=== PATIENT | female | born 1950 | race Caucasian/White ===

== ENCOUNTER 2024-01-15 05:23 | Inpatient (IN) | payer MEDICARE, MEDICAID ==
[~2024-01-15] VITALS: Ht 170.2 cm; Wt 76.3 kg
[2024-01-15] MEDS ORDERED: oxyCODONE IR immediate release 5 MG TABLET PO PRN (05:30)
[2024-01-15] MEDS ORDERED: MAG HYDROX/AL HYDROX/SIMETH 30 ML UDC PO PRN ×2 (05:30→11:30)
[2024-01-15] MEDS ORDERED: MAGNESIUM HYDROXIDE 30 ML UDC PO PRN ×2 (05:30→11:30)
[2024-01-15] MEDS ORDERED: diphenhydrAMINE HCL 25 MG CAPSULE PO PRN (05:30)
[2024-01-15] MEDS ORDERED: HYDROCODONE/APAP 10/325MG TABLET PO PRN (05:30)
[2024-01-15] MEDS ORDERED: CLONIDINE HCL 0.1 MG TABLET PO PRN (05:30)
[2024-01-15] MEDS ORDERED: ONDANSETRON HCL/PF 4 MG/2 ML VIAL IV PRN (05:30)
[2024-01-15] MEDS ORDERED: POLYMYXIN B SULFATE 500,000 UNITS ONE (05:57)
[2024-01-15] MEDS ORDERED: ANESTHESIA TRAY IN PYXIS 1 EA TRAY MC ONE (05:57)
[2024-01-15] MEDS ORDERED: BUPIVACAINE 0.5 % PF 150 MG/30 ML VIAL ONE (05:57)
[2024-01-15] MEDS ORDERED: ROCURONIUM BROMIDE 50 MG/5 ML ONE (06:26)
[2024-01-15] MEDS ORDERED: FENTANYL PF 250MCG/5ML AMPUL ONE (06:26)
[2024-01-15] MEDS ORDERED: TRANEXAMIC ACID 3,000 MG in SODIUM CHLORIDE IRRIG SOLUTION 70 ML IR ONE (06:30)
[2024-01-15] MEDS ORDERED: TRANEXAMIC ACID 1,000 MG/10 ML VIAL ONE (06:47)
[2024-01-15] MEDS ORDERED: LABETALOL 20 MG/4 ML VIAL ONE (06:47)
[2024-01-15] MEDS ORDERED: ROPIVACAINE HCL 0.5% 5 MG/ML 30ML VIAL ONE (07:36)
[2024-01-15] MEDS ORDERED: FENTANYL PF 100MCG/2ML AMPUL ONE ×2 (08:50→09:12)
[2024-01-15] MEDS: FAMOTIDINE (20 MG) 20 MG TABLET PO SCH (09:00)
[2024-01-15] MEDS: GABAPENTIN 300 MG CAPSULE PO SCH (09:00)
[2024-01-15] MEDS: DOCUSATE SODIUM 100 MG CAPSULE PO SCH (09:00)
[2024-01-15] MEDS ORDERED: MEPERIDINE25 MG SYR 25 MG/ML VIAL ONE (09:13)
[2024-01-15] MEDS: IV D5/0.45 NACL 1,000 ML IV PRN (10:54)
[2024-01-15] MEDS ORDERED: ALEN70TA80 PO (11:06)
[2024-01-15] MEDS ORDERED: SEMA1PEN SQ (11:06)
[2024-01-15] MEDS ORDERED: ACETAMINOPHEN 325 MG TABLET PO PRN (11:30)
[2024-01-15] MEDS ORDERED: Z GUARD REMEDY 4 OZ OINT TP PRN (11:30)
[2024-01-15] MEDS ORDERED: ONDANSETRON HCL/PF 4 MG/2 ML VIAL IVP PRN (11:30)
[2024-01-15 12:03] VITALS: BP 107/59; TEMP 96.4; O2SAT 96
[2024-01-15] MEDS: ANCEF 1 GM/50 ML D5W IV SCH (14:00)
[2024-01-15] MEDS: HYDROCODONE/APAP 5/325MG TABLET PO PRN (15:14)
[2024-01-15 15:57] VITALS: BP 123/70; TEMP 97.5; O2SAT 95
[2024-01-15 20:00] VITALS: BP 124/71; TEMP 97.5; O2SAT 94
[2024-01-15] MEDS: PANTOPRAZOLE 40 MG TABLET.DR PO SCH (21:04)
[2024-01-15] MEDS: POLYETHYLENE GLYCOL 3350 17 GM POWD.PACK PO SCH (21:04)
[2024-01-16] MEDS: TRAMADOL HCL 50 MG TABLET PO PRN (00:40)
[2024-01-16] MEDS: MENTHOL/CETYLPYRD (CEPACOL) 1 LOZ LOZENGE PO PRN (00:40)
[2024-01-16 06:47] LABS: BASOPHILS % (AUTO) 0.3 % (0.0-2.0); EOSINOPHILS % (AUTO) 0.2 % (0.0-6.0); HEMATOCRIT 32 % (33-45); HEMOGLOBIN 10.5 g/dL (11.5-14.8); LYMPHOCYTES % (AUTO) 15.1 % (20.0-44.0); MEAN CORPUSCULAR HEMOGLOBIN 29 PG (26.0-33.0); MEAN CORPUSCULAR HGB CONC 33 g/dl (31.0-36.0); MEAN CORPUSCULAR VOLUME 89 fL (82-100); MONOCYTES # (AUTO) 0.6 K/uL (0.1-1.30); MONOCYTES % (AUTO) 9.5 % (2.0-12.0); NEUTROPHILS # (AUTO) 4.9 K/uL (1.8-8.9); NEUTROPHILS % (AUTO) 74.9 % (43.0-81.0); PLATELET COUNT (AUTO) 146 K/uL (150-450); RED BLOOD CELL COUNT(AUTO) 3.59 MIL/uL (4.0-5.2); WHITE BLOOD COUNT (AUTO) 6.5 K/uL (4.3-11.0)
[2024-01-16 07:03] LABS: CALCIUM, SERUM 7.1 mg/dL (8.5-10.1); CARBON DIOXIDE 28 mmol/L (21-32); CHLORIDE 104 mmol/L (98-107); CREATININE 0.6 mg/dL (0.6-1.3); GLUCOSE 120 mg/dL (74-106); MAGNESIUM 1.5 mg/dL (1.8-2.4); PHOSPHORUS 2.2 mg/dL (2.5-4.9); POTASSIUM 4.2 mmol/L (3.5-5.1); SODIUM SERUM 137 mmol/L (136-145); UREA NITROGEN, BLOOD 5 mg/dL (7-18)
[2024-01-16] MEDS: ASPIRIN 325 MG TABLET PO SCH (08:28)
[2024-01-16 08:57] VITALS: BP 113/61; TEMP 97.9; O2SAT 93
[2024-01-16] MEDS: MAGNESIUM OXIDE 400 MG TABLET PO ONE (10:42)
[2024-01-16] MEDS: HYDROMORPHONE 1 MG/1 ML DISP.SYRIN IM/IV/SC PRN (10:43)
[2024-01-16 12:15] VITALS: BP 116/62; TEMP 97.2; O2SAT 90
== END 2024-01-16 14:23 | disposition home health service (06) | DRG 470 ==
LOC: DS 05:23 → MED 10:12
PROVIDERS: ADMIT Specialist; ATTEND Specialist
PROC: 0SRC0J9 Replacement of Right Knee Joint with Synthetic Substitute, Cemented, Open Approach (ICD-10-PCS; principal; 2024-01-15)
DX: M17.11 Unilateral primary osteoarthritis, right knee (principal); K21.9 Gastro-esophageal reflux disease without esophagitis; E66.9 Obesity, unspecified; K59.09 Other constipation; M81.0 Age-related osteoporosis without current pathological fracture; Z68.26 Body mass index [BMI] 26.0-26.9, adult
CPT/HCPCS: 36415; 80048-TC; 82962-TC; 83735-TC; 84100-TC; 85025-TC; 97110-TC; 97116-TC; 97530-TC; 97760-TC; A4217; A4223; C1713; C1776; G0378; J0690; J1170; J2175; J2795; J3010; J3490; J7060; L1830; Q0163